=== PATIENT | female | born 1985 | race Caucasian/White ===

== ENCOUNTER 2019-10-28 13:14 | Emergency (ER) | payer MEDICAID ==
--- NOTE | 2019-10-28 13:58 | NUR ---
Patient given written and verbal discharge instructions and verbalizes understanding. ER MD discussed with patient the results and treatment provided. Patient in stable condition. ID arm band removed. No Rx given. Patient educated on pain management and to follow up with PMD. Pain Scale 0/10. Opportunity for questions provided and answered. Medication side effect fact sheet provided.
--- NOTE | 2019-10-28 13:59 | NUR ---
Patient to ER bed 8 to gown for evaluation. Side rails up.
--- NOTE | 2019-10-28 14:00 | NUR ---
MD AMARI Malhotra at bedside examining patient.
--- NOTE | 2019-10-28 14:00 | NUR ---
Patient arrived in the ED accompanied by , c/o lower abdominal cramping and vaginal bleeding for 3 days. Patient is alert and oriented x4, respirations even and unlabored, speaking in full sentences, ambulating with a steady gait. Denied any respiratory distress at this time. Informed of the wait time. at bedside. Instructed to notify ED staff for any changes or worsening of symptoms. Patient verbalized understanding.
[2019-10-28 14:36] LABS: BASOPHILS % (AUTO) 0.9 % (0.0-2.0); EOSINOPHILS % (AUTO) 0.9 % (0.0-4.0); HEMATOCRIT 34.6 % (36-48); HEMOGLOBIN 10.8 g/dL (12.0-16.0); LYMPHOCYTES # (AUTO) 1.8 K/uL (1.0-5.5); LYMPHOCYTES % (AUTO) 33.5 % (20.5-51.5); MEAN CORPUSCULAR HEMOGLOBIN 21 pg (27-31); MEAN CORPUSCULAR HGB CONC 31 % (32-36); MEAN CORPUSCULAR VOLUME 68 fL (79.0-98.0); MONOCYTES # (AUTO) 0.4 K/uL (0.0-1.0); MONOCYTES % (AUTO) 8.3 % (1.7-9.3); NEUTROPHILS % (AUTO) 56.4 % (40.0-70.0); PLATELET COUNT (AUTO) 308 K/uL (130-430); RED BLOOD CELL COUNT(AUTO) 5.06 MIL/uL (4.2-6.2); RED CELL DISTRIBUTION WIDTH 17.1 % (9.0-15.0); WHITE BLOOD COUNT (AUTO) 5.3 K/uL (4.8-10.8)
[2019-10-28 14:44] LABS: CALCIUM 8.5 mg/dL (8.4-11.0); CREATININE 0.57 mg/dL (0.55-1.30); POTASSIUM 3.9 mmol/L (3.5-5.1)
--- NOTE | 2019-10-28 14:49 | NUR ---
Ultrasound done at bedside. Patient tolerated the procedure well.
[2019-10-28 14:57] LABS: ALBUMIN 3.4 g/dL (3.4-4.8); TOTAL BILIRUBIN 0.3 mg/dL (0.0-1.0)
--- NOTE | 2019-10-28 15:04 | NUR ---
Urine specimen collected. Dropped off at the lab.
[2019-10-28 15:46] LABS: BILIRUBIN,URINE NEGATIVE (NEGATIVE); BLOOD, URINE 2+ (NEGATIVE); CLARITY/URINE CLEAR (CLEAR); COLOR,URINE YELLOW (YELLOW); GLUCOSE,URINE NEGATIVE (NEGATIVE); KETONES,URINE NEGATIVE (NEGATIVE); LEUKOCYTE ESTERASE ,URINE NEGATIVE (NEGATIVE); NITRITE, URINE NEGATIVE (NEGATIVE); PROTEIN URINE NEGATIVE (NEGATIVE); UROBILINOGEN,URINE 0.2 (0.2-1.0)
[2019-10-28 15:59] LABS: BACTERIA,URINE FEW /HPF (None Seen); MUCUS,URINE 1+ /LPF (None Seen); WBC,URINE 0-3 /HPF (0-3)
[2019-10-28 16:06] VITALS: BP_SYST 122
== END 2019-10-28 16:06 | disposition home or self-care (01) ==
LOC: SED 13:14
DX: O20.0 Threatened abortion (principal); O99.011 Anemia complicating pregnancy, first trimester; Z3A.01 Less than 8 weeks gestation of pregnancy
CPT/HCPCS: 36415; 76856-TC; 80053; 81000-TC; 84702-TC; 85025; 86900; 86901; 99284

== ENCOUNTER 2019-11-04 09:51 | Emergency (ER) | payer MEDICAID ==
[~2019-11-04] VITALS: Ht 170.2 cm; Wt 76.7 kg
--- NOTE | 2019-11-04 10:04 | NUR ---
Pt ambulated to bed 5
--- NOTE | 2019-11-04 10:05 | NUR ---
Patient arrived in the ED c/o mild abdominal pain, 2 weeks . Was seen last week for threathened miscarriage. Denied any nausea, vaginal bleeding or vomiting. Patient is alert and oriented x4, respirations even and unlabored, speaking in full sentences, ambulating with a steady gait. VS WNL, pain level 3/10. Informed of wait time. Instructed to notify ED staff for any changes in condition or worsening of symptoms. Patient verbalized understanding.
[2019-11-04 10:07] VITALS: BP_SYST 129
--- NOTE | 2019-11-04 10:11 | NUR ---
Urine specimen collected. Urine done.
--- NOTE | 2019-11-04 10:22 | NUR ---
ER Dr. Mike at bedside examining patient.
[2019-11-04 11:41] VITALS: BP_SYST 129
== END 2019-11-04 11:39 | disposition home or self-care (01) ==
LOC: SED 09:51
DX: O20.0 Threatened abortion (principal); Z3A.01 Less than 8 weeks gestation of pregnancy
CPT/HCPCS: 36415; 81025; 84702-TC; 99283

== ENCOUNTER 2020-01-19 15:28 | Emergency (ER) | payer MEDICAID ==
[~2020-01-19] VITALS: Ht 175.3 cm; Wt 76.7 kg
[2020-01-19 15:30] VITALS: BP_SYST 115
--- NOTE | 2020-01-19 15:30 | NUR ---
Patient to ER bed 7 to gown for evaluation. Side rails up. Report given to RAYMON Burrell.
--- NOTE | 2020-01-19 15:45 | NUR ---
ER Dr. Quigley at bedside examining patient.
[2020-01-19] MEDS ORDERED: ACETAMINOPHEN 325 MG TABLET PO ONE (16:00)
--- NOTE | 2020-01-19 16:07 | NUR ---
PATIENT PRESENTS TO THE ER WITH ONE DAY HX OF SEVERE RIGHT LOWER QUADRANT PAIN; NO TRAUMA, NO OTHER REMARKABLE S/S; PATIENT STATES SHE IS 16 WEEKS GESTATION; (TRANSLATION PER ) PATIENT IS GREEK SPEAKING ONLY
[2020-01-19 16:11] LABS: BILIRUBIN,URINE NEGATIVE (NEGATIVE); BLOOD, URINE 2+ (NEGATIVE); CLARITY/URINE CLEAR (CLEAR); COLOR,URINE YELLOW (YELLOW); GLUCOSE,URINE NEGATIVE (NEGATIVE); KETONES,URINE NEGATIVE (NEGATIVE); LEUKOCYTE ESTERASE ,URINE TRACE (NEGATIVE); NITRITE, URINE NEGATIVE (NEGATIVE); PH,URINE 6.5 (5.0-8.0); PROTEIN URINE NEGATIVE (NEGATIVE); UROBILINOGEN,URINE 0.2 (0.2-1.0)
[2020-01-19 16:14] LABS: BACTERIA,URINE FEW /HPF (None Seen)
[2020-01-19 16:15] LABS: MUCUS,URINE 1+ /LPF (None Seen); YEAST,URINE Rare /HPF (None Seen)
[2020-01-19 16:18] LABS: BASOPHILS % (AUTO) 0.3 % (0.0-2.0); EOSINOPHILS # (AUTO) 0.1 K/uL (0.0-0.4); EOSINOPHILS % (AUTO) 0.8 % (0.0-4.0); HEMATOCRIT 31.7 % (36-48); HEMOGLOBIN 10.1 g/dL (12.0-16.0); LYMPHOCYTES # (AUTO) 1.6 K/uL (1.0-5.5); LYMPHOCYTES % (AUTO) 19.7 % (20.5-51.5); MEAN CORPUSCULAR HEMOGLOBIN 23 pg (27-31); MEAN CORPUSCULAR HGB CONC 32 % (32-36); MEAN CORPUSCULAR VOLUME 72 fL (79.0-98.0); MONOCYTES # (AUTO) 0.5 K/uL (0.0-1.0); MONOCYTES % (AUTO) 5.9 % (1.7-9.3); NEUTROPHILS # (AUTO) 5.9 K/uL (1.8-7.7); NEUTROPHILS % (AUTO) 73.3 % (40.0-70.0); PLATELET COUNT (AUTO) 257 K/uL (130-430); RED BLOOD CELL COUNT(AUTO) 4.42 MIL/uL (4.2-6.2); RED CELL DISTRIBUTION WIDTH 20.7 % (9.0-15.0); WHITE BLOOD COUNT (AUTO) 8.1 K/uL (4.8-10.8)
--- NOTE | 2020-01-19 17:01 | NUR ---
REASSESSMENT; PATIENT STATES MARGINAL IMPROVEMENT; ULTRASOUND PROCEDURE PENDING; OTHERWISE PATIENT IS SEDATE AND UNCHANGED
[2020-01-19 18:05] VITALS: BP_SYST 107
--- NOTE | 2020-01-19 18:08 | NUR ---
REASSESSMENT BY ERMD; [facility]CI GIVEN AND INDICATED FULL UNDERSTANDING; DISCHARGED AMBULATORY; IMPROVED
== END 2020-01-19 18:03 | disposition home or self-care (01) ==
LOC: SED 15:28
DX: O23.42 Unspecified infection of urinary tract in pregnancy, second trimester (principal); Z3A.16 16 weeks gestation of pregnancy
CPT/HCPCS: 36415; 76805-TC; 81000-TC; 84702-TC; 85025; 87086; 99284

== ENCOUNTER 2020-01-31 23:46 | Emergency (ER) | payer MEDICAID ==
[~2020-01-31] VITALS: Ht 172.7 cm; Wt 86.6 kg
[2020-01-31 23:50] VITALS: BP_SYST 115
--- NOTE | 2020-02-01 00:05 | NUR ---
Patient to ER bed 3 to gown for evaluation. Side rails up. Report given to MYNOR ENNIS.
--- NOTE | 2020-02-01 00:05 | NUR ---
Pt c/o difficulty breathing and feeling depressed. Pt placed on bus driver/monitor, VSS. SPO2 98% RA. Pt tearful, denies SI, HI, no A/V hallucinations. Pt also verbalizes being 17 weeks .
--- NOTE | 2020-02-01 00:10 | NUR ---
Dr. Lowe at bedside to assess pt. Pt respirations even and non-labored, VSS, NAD.
--- NOTE | 2020-02-01 01:27 | NUR ---
+ movement with doppler FHT 148.
[2020-02-01 01:30] VITALS: BP_SYST 116
--- NOTE | 2020-02-01 01:30 | NUR ---
Patient given written and verbal discharge instructions and verbalizes understanding. ER MD discussed with patient the results and treatment provided. Patient in stable condition. ID arm band removed. Marivel Rx given. Patient educated on pain management and to follow up with PMD. Pain Scale 0/10. Opportunity for questions provided and answered. Medication side effect fact sheet provided.
== END 2020-02-01 01:30 | disposition home or self-care (01) ==
LOC: SED 23:46
DX: O99.342 Other mental disorders complicating pregnancy, second trimester (principal); F41.8 Other specified anxiety disorders; Z3A.17 17 weeks gestation of pregnancy
CPT/HCPCS: 99281

== ENCOUNTER 2021-08-18 03:50 | Inpatient (IN) | payer MEDICAID, SELFPAY ==
[2021-08-18] VITALS (10 sets, daily range): BP systolic 92–126
[~2021-08-18] VITALS: Ht 170.2 cm; Wt 81.6 kg
[2021-08-18] MEDS ORDERED: ONDANSETRON HCL 4 MG/2 ML VIAL IVP ONE (04:15)
[2021-08-18] MEDS ORDERED: MAG HYDROX/AL HYDROX/SIMETH 30 ML, DICYCLOMINE HCL 20 MG, LIDOCAINE VISCOUS 2% 15ML (PO... PO ONE ×3 (04:15)
[2021-08-18] MEDS ORDERED: ANT30 PO (04:20)
[2021-08-18] MEDS ORDERED: ONDA-8 TL (04:20)
[2021-08-18] MEDS ORDERED: OMEP40CA20 PO (04:20)
[2021-08-18] MEDS ORDERED: NACL 0.9% 1,000 ML IV ONE (04:30)
[2021-08-18 04:38] LABS: BASOPHILS % (AUTO) 0.5 % (0.0-2.0); EOSINOPHILS # (AUTO) 0.1 K/uL (0.0-0.4); EOSINOPHILS % (AUTO) 1.7 % (0.0-4.0); HEMATOCRIT 35.9 % (36-48); HEMOGLOBIN 11.7 g/dL (12.0-16.0); LYMPHOCYTES # (AUTO) 1.9 K/uL (1.0-5.5); LYMPHOCYTES % (AUTO) 23.6 % (20.5-51.5); MEAN CORPUSCULAR HEMOGLOBIN 25 pg (27-31); MEAN CORPUSCULAR HGB CONC 33 % (32-36); MEAN CORPUSCULAR VOLUME 77 fL (79.0-98.0); MONOCYTES # (AUTO) 0.5 K/uL (0.0-1.0); MONOCYTES % (AUTO) 6.4 % (1.7-9.3); NEUTROPHILS # (AUTO) 5.4 K/uL (1.8-7.7); NEUTROPHILS % (AUTO) 67.8 % (40.0-70.0); PLATELET COUNT (AUTO) 234 K/uL (130-430); RED BLOOD CELL COUNT(AUTO) 4.66 MIL/uL (4.2-6.2); RED CELL DISTRIBUTION WIDTH 14.4 % (9.0-15.0)
[2021-08-18 04:39] LABS: CALCIUM 8.4 mg/dL (8.4-11.0); CREATININE 0.65 mg/dL (0.55-1.30); POTASSIUM 3.3 mmol/L (3.5-5.1)
[2021-08-18 04:45] LABS: ALBUMIN 3.2 g/dL (3.4-4.8); TOTAL BILIRUBIN 0.3 mg/dL (0.0-1.0)
[2021-08-18] MEDS ORDERED: KETOROLAC TROMETHAMINE 30 MG VIAL IVP ONE (06:00)
[2021-08-18] MEDS ORDERED: PIPERACILLIN/TAZO 3.375 GM in NS 50 ML IV ONE (06:30)
[2021-08-18] MEDS ORDERED: PIPERACILLIN/TAZOBACTAM 3.375 GM/VIAL (ZOSYN) IV ONE (06:58)
[2021-08-18] MEDS ORDERED: ALBUTEROL SULFATE 0.083% 2.5 MG/3 ML VIAL.NEB INH PRN (07:45)
[2021-08-18] MEDS ORDERED: ACETAMINOPHEN 325 MG TABLET PO PRN ×2 (07:45→08:30)
[2021-08-18] MEDS ORDERED: ONDANSETRON HCL 4 MG/2 ML VIAL IVP PRN ×2 (07:45→20:00)
[2021-08-18] MEDS ORDERED: NALOXONE HCL 0.4 MG/ML AMP (NARCAN) IVP PRN (07:45)
[2021-08-18] MEDS ORDERED: KCL 20 mEq in 100 mL (PREMIX) 100 ML IV ONE (08:00)
[2021-08-18] MEDS: MORPHINE 2 MG/ML INJ. SYRINGE IVP PRN ×2 (09:15→14:12)
[2021-08-18] MEDS: PIPERACILLIN/TAZO 3.375/DEX-IS 50 ML IV SCH ×4 (09:16→23:15)
[2021-08-18] MEDS: NACL 0.9% 1,000 ML IV SCH ×3 (09:50→23:15)
[2021-08-18 10:22] LABS: PROTHROMBIN TIME 10.4 SECS (9.5-12.5)
[2021-08-18] MEDS: MORPHINE 4 MG INJ. 4 MG/ML VIAL IVP PRN (12:57)
[2021-08-18] MEDS ORDERED: METOCLOPRAMIDE HCL 10 MG/2 ML VIAL IVP PRN (20:00)
[2021-08-18] MEDS ORDERED: fentaNYL CITRATE/PF 100 MCG/2 ML AMP IVP PRN ×2 (20:00)
[2021-08-18] MEDS ORDERED: MIDAZOLAM HCL 5 MG/ML VIAL (VERSED) IV ONE (20:45)
[2021-08-18] MEDS ORDERED: ONDANSETRON HCL 4 MG/2 ML VIAL ONE (20:45)
[2021-08-18] MEDS ORDERED: PROPOFOL 200MG/ 20ML VIAL (DIPRIVAN) IV ONE (20:45)
[2021-08-18] MEDS ORDERED: PHENYLEPHRINE HCL 10 MG/ML VIAL (NEOSYNEPHRINE) ONE (20:45)
[2021-08-18] MEDS ORDERED: fentaNYL CITRATE/PF 100 MCG/2 ML AMP ONE ×2 (20:45→20:55)
[2021-08-18] MEDS ORDERED: SEVOFLURANE 15 MIN GAS INH ONE (20:45)
[2021-08-18] MEDS ORDERED: NS 1000 ML IV.SOLN IV ONE (20:45)
[2021-08-18] MEDS ORDERED: NS IRRIG SOLN 1000 ML IR ONE (20:45)
[2021-08-18] MEDS ORDERED: WATER FOR IRRIGATION,STERILE 1,000 ML IRRIG.SOLN IR ONE (20:45)
[2021-08-18] MEDS ORDERED: BUPIVACAINE /EPINEPHRINE/PF 0.25% 30 ML VIAL INJ ONE (20:45)
[2021-08-18] MEDS ORDERED: ROCURONIUM BROMIDE 10 MG/ML (ZEMURON) ONE (20:45)
[2021-08-18] MEDS ORDERED: GLYCOPYRROLATE 0.2 MG/ML VIAL ONE (20:45)
[2021-08-18] MEDS ORDERED: METOCLOPRAMIDE HCL 10 MG/2 ML VIAL ONE (20:47)
[2021-08-19 00:21] VITALS: BP_SYST 99
[2021-08-19] MEDS: MORPHINE 2 MG/ML INJ. SYRINGE IVP PRN ×3 (00:51→15:39)
[2021-08-19] MEDS: PIPERACILLIN/TAZO 3.375/DEX-IS 50 ML IV SCH ×4 (05:19→23:03)
[2021-08-19 07:13] LABS: BASOPHILS % (AUTO) 0.5 % (0.0-2.0); EOSINOPHILS # (AUTO) 0.1 K/uL (0.0-0.4); EOSINOPHILS % (AUTO) 0.8 % (0.0-4.0); HEMATOCRIT 32.7 % (36-48); HEMOGLOBIN 10.5 g/dL (12.0-16.0); LYMPHOCYTES # (AUTO) 1.9 K/uL (1.0-5.5); LYMPHOCYTES % (AUTO) 27.2 % (20.5-51.5); MEAN CORPUSCULAR HEMOGLOBIN 25 pg (27-31); MEAN CORPUSCULAR HGB CONC 32 % (32-36); MEAN CORPUSCULAR VOLUME 78 fL (79.0-98.0); MONOCYTES # (AUTO) 0.4 K/uL (0.0-1.0); MONOCYTES % (AUTO) 5.7 % (1.7-9.3); NEUTROPHILS # (AUTO) 4.5 K/uL (1.8-7.7); NEUTROPHILS % (AUTO) 65.8 % (40.0-70.0); PLATELET COUNT (AUTO) 202 K/uL (130-430); RED CELL DISTRIBUTION WIDTH 14.8 % (9.0-15.0); WHITE BLOOD COUNT (AUTO) 6.8 K/uL (4.8-10.8)
[2021-08-19 07:36] LABS: BILIRUBIN,URINE NEGATIVE (NEGATIVE); BLOOD, URINE 1+ (NEGATIVE); CLARITY/URINE CLEAR (CLEAR); COLOR,URINE YELLOW (YELLOW); GLUCOSE,URINE NEGATIVE (NEGATIVE); KETONES,URINE 2+ (NEGATIVE); LEUKOCYTE ESTERASE ,URINE NEGATIVE (NEGATIVE); NITRITE, URINE NEGATIVE (NEGATIVE); PH,URINE 5.5 (5.0-8.0); PROTEIN URINE NEGATIVE (NEGATIVE); UROBILINOGEN,URINE 0.2 (0.2-1.0)
[2021-08-19] MEDS: NACL 0.9% 1,000 ML IV SCH ×2 (07:45→14:08)
[2021-08-19 08:00] VITALS: BP_SYST 110
[2021-08-19 08:05] LABS: ALBUMIN 2.4 g/dL (3.4-4.8); CALCIUM 7.7 mg/dL (8.4-11.0); CREATININE 0.53 mg/dL (0.55-1.30); POTASSIUM 3.8 mmol/L (3.5-5.1); TOTAL BILIRUBIN 0.3 mg/dL (0.0-1.0)
[2021-08-19 08:25] LABS: BACTERIA,URINE RARE /HPF (None Seen); WBC,URINE 0-3 /HPF (0-3)
[2021-08-19] MEDS ORDERED: CALCIUM CARBONATE 500 MG/ TAB.CHEW PO PRN (11:15)
[2021-08-19] MEDS ORDERED: MAG-AL HYDROX/SIMETH 30 ML UDC PO PRN (11:15)
[2021-08-19 18:09] VITALS: BP_SYST 108
[2021-08-19] MEDS: MORPHINE 4 MG INJ. 4 MG/ML VIAL IVP PRN (18:47)
[2021-08-19 20:45] VITALS: BP_SYST 124
[2021-08-20 00:30] VITALS: BP_SYST 119
[2021-08-20] MEDS: NACL 0.9% 1,000 ML IV SCH ×2 (03:11→05:59)
[2021-08-20] MEDS: PIPERACILLIN/TAZO 3.375/DEX-IS 50 ML IV SCH (05:57)
[2021-08-20] MEDS ORDERED: AMOX-426 PO (09:43)
[2021-08-20 10:58] VITALS: BP_SYST 116
== END 2021-08-20 15:00 | disposition home or self-care (01) | DRG 234 ==
LOC: SED 03:50 → SMU 06:37
PROVIDERS: ADMIT Internal Medicine Hospice and Palliative Medicine; ATTEND Internal Medicine Hospice and Palliative Medicine
PROC: 0DTJ4ZZ Resection of Appendix, Percutaneous Endoscopic Approach (ICD-10-PCS; principal; 2021-08-18 19:25)
DX: K35.80 Unspecified acute appendicitis (principal); E88.09 Other disorders of plasma-protein metabolism, not elsewhere classified; D64.9 Anemia, unspecified; E87.6 Hypokalemia; Z20.822 Contact with and (suspected) exposure to COVID-19
CPT/HCPCS: 36415; 74021; 76376; 80053; 81000; 83690; 84702; 85025; 85610-TC; 85730-TC; 87040-TC; 87081; 88304; 96361; 96365; 96375; 99285; C1727; J1885; J2001; J2250; J2270; J2370; J2405; J2543; J2704; J2765; J3010; J3480; J3490; J7030